=== PATIENT | female | born 1940 | race Caucasian/White ===

== ENCOUNTER 2022-02-25 18:43 | Inpatient (IN) | payer MEDICARE, OTHER, MEDICAID ==
[2022-02-25] MEDS ORDERED: Sodium Chloride 0.9% 10 ML Syringe FLUSH PRN (18:55)
[2022-02-25] MEDS ORDERED: Acetaminophen 325 MG Tab PO ONE (18:57)
[2022-02-25] MEDS ORDERED: Sodium Chloride 0.9% 1,000 ML IV SCH (19:00)
[2022-02-25] MEDS ORDERED: cefTRIAXone 2 GM in Sodium Chloride 0.9% 100 ML IV ONE (20:18)
[2022-02-25 20:26] LABS: CORONAVIRUS COVID-19 NAA NEGATIVE (NEGATIVE)
[2022-02-25] MEDS ORDERED: Sodium Chloride 0.9% 1,000 ML IV ONE (21:26)
[2022-02-25] MEDS ORDERED: Ondansetron 4 MG/2 ML SDV IV PRN (22:28)
[2022-02-25] MEDS ORDERED: oxyCODONE 5 MG Tab PO PRN (22:28)
[2022-02-25] MEDS ORDERED: HYDROmorphone 0.5 MG/0.5 ML Syringe IVPUSH PRN ×2 (22:28→23:03)
[2022-02-25] MEDS ORDERED: Acetaminophen 120 MG Supp RECTAL PRN (23:01)
[2022-02-25] MEDS ORDERED: Acetaminophen 325 MG Tab PO PRN (23:02)
[2022-02-25] MEDS: Heparin Sodium 5,000 Units/ML Vial SUBCUT SCH (23:43)
[2022-02-25] MEDS: Lactated Ringers 1,000 ML IV SCH (23:43)
[2022-02-26] MEDS: Lactated Ringers 1,000 ML IV SCH (04:28)
[2022-02-26] MEDS ORDERED: Pantoprazole 40 MG in Sodium Chloride 0.9% 100 ML IV SCH (06:00)
[2022-02-26] MEDS: Heparin Sodium 5,000 Units/ML Vial SUBCUT SCH ×3 (06:16→21:09)
[2022-02-26] MEDS: Dextrose 5%-Lactated Ringers 1,000 ML IV SCH (10:36)
[2022-02-26] MEDS ORDERED: Iopamidol 612 MG/ML 100 ML Bottle IVPUSH ONE (12:14)
[2022-02-26] MEDS ORDERED: Sodium Chloride 0.9% 10 ML Syringe FLUSH PRN (12:14)
[2022-02-26] MEDS: cefTRIAXone 1 GM in Sodium Chloride 0.9% 100 ML IV SCH (21:09)
[2022-02-27] MEDS: Heparin Sodium 5,000 Units/ML Vial SUBCUT SCH ×4 (00:59→21:38)
[2022-02-27] MEDS: Dextrose 5%-Lactated Ringers 1,000 ML IV SCH ×2 (01:01→07:43)
[2022-02-27] MEDS: Pantoprazole 40 MG Vial IV SCH (06:13)
[2022-02-27] MEDS: cefTRIAXone 1 GM in Sodium Chloride 0.9% 100 ML IV SCH (21:33)
[2022-02-28] MEDS: Dextrose 5%-Lactated Ringers 1,000 ML IV SCH (04:45)
[2022-02-28] MEDS: Heparin Sodium 5,000 Units/ML Vial SUBCUT SCH ×2 (04:56→08:49)
[2022-02-28] MEDS: Pantoprazole 40 MG Vial IV SCH ×2 (04:56→08:49)
== END 2022-02-28 15:07 | DRG 864 ==
LOC: JD.ED 18:43 → JD.MS 22:28
PROVIDERS: ADMIT Hospitalist; ATTEND Hospitalist
DX: A41.9 Sepsis, unspecified organism (principal); N30.00 Acute cystitis without hematuria; Z93.6 Other artificial openings of urinary tract status; R50.9 Fever, unspecified; E87.2 Acidosis; G30.9 Alzheimer's disease, unspecified; R11.10 Vomiting, unspecified; Z74.01 Bed confinement status; F02.80 Dementia in other diseases classified elsewhere, unspecified severity, without behavioral disturbance, psychotic disturbance, mood disturbance, and anxiety; N31.9 Neuromuscular dysfunction of bladder, unspecified; Z66 Do not resuscitate; Z20.822 Contact with and (suspected) exposure to COVID-19; I10 Essential (primary) hypertension; E78.5 Hyperlipidemia, unspecified; K21.9 Gastro-esophageal reflux disease without esophagitis; F32.A Depression, unspecified; E86.0 Dehydration; E55.9 Vitamin D deficiency, unspecified; Z79.82 Long term (current) use of aspirin; Z79.899 Other long term (current) drug therapy; Z88.2 Allergy status to sulfonamides; Z88.8 Allergy status to other drugs, medicaments and biological substances; Z86.73 Personal history of transient ischemic attack (TIA), and cerebral infarction without residual deficits
CPT/HCPCS: 0241U; 36415; 51702; 71045; 74177; 80048; 80053; 81001; 82947; 83605; 85025; 85027; 85610; 85730; 86140; 87040; 87086; 87641; 92610; 94761; 96365; 99285; A9270-GY; C9113; J0696; J1644; J3490; J7030; J7120; J7121; Q9967; U0002